=== PATIENT | female | born 2000 | race Caucasian/White ===

== ENCOUNTER 2021-04-26 21:50 | Emergency (ER) | payer OTHER, SELFPAY ==
[2021-04-26 22:05] VITALS: BP 110/63; PULSE 86; RESP 20; TEMP 36.6; O2SAT 98
[2021-04-26 22:25] LABS: Basophils Absolute Auto 0.07 K/mm3 (0.00-0.10); Basophils Percent Auto 0.6 % (0.0-1.0); Eosinophils Absolute Auto 0.04 K/mm3 (0.02-0.50); Eosinophils Percent Auto 0.3 % (1.0-6.0); Hematocrit 35.4 % (35.0-49.0); Hemoglobin 11.8 g/dL (12.0-15.0); Immature Granulocyte Absolute 0.05 K/mm3 (0.00-0.00); Immature Granulocyte Percent A 0.4 % (0.0-0.0); Lymphocytes Absolute Auto 2.87 K/mm3 (1.10-4.50); Lymphocytes Percent Auto 24.2 % (18.0-42.0); Mean Corpuscular HGB Conc 33.3 g/dL (32.0-36.0); Mean Corpuscular Hemoglobin 28.9 pg (27.0-31.0); Mean Corpuscular Volume 86.6 fL (78.0-102.0); Monocytes Absolute Auto 0.84 K/mm3 (0.10-0.90); Monocytes Percent Auto 7.1 % (2.0-11.0); Neutrophils Percent Auto 67.4 % (50.0-70.0); Platelet Count Result 240 K/mm3 (150-420); Red Blood Count 4.09 M/mm3 (4.20-5.40); Red Cell Distribution Width 12.6 % (11.6-14.4); White Blood Count 11.8 K/mm3 (4.8-10.8)
[2021-04-26 22:29] LABS: Add Urine Microscopic? YES; Appearance Urine Clear (Clear); Bilirubin Urine Negative (Negative); Blood Urine Negative (Negative); Color Urine Light Yellow (Yellow); Glucose Urine UA Negative (Negative); Ketones Urine 1+ (Negative); Leukocyte Esterase Ur 1+ (Negative); Nitrate Urine Negative (Negative); Protein Urine Trace (Negative); pH Urine 7.5 (5.0-8.0)
--- NOTE | 2021-04-26 22:32 | ED.NAVMDI ---
HPI - Nausea/Vomiting/Diarrhea General Chief complaint: Nausea/Vomiting/Diarrhea Stated complaint: vomitting Source: patient Mode of arrival: ambulatory Limitations: no limitations History of Present Illness HPI Narrative: pt presents with complaints of nausea and vomiting. She just found out that she is . She said her last period was about 2 months ago in february. She has no fevers, no chills, and otherwise feels ok. SHe states everytime she tried to drink something or eat, she threw up today. MD elicited complaint: nausea and vomiting Onset (ago): day(s) (today) Description of vomiting: food contents Associated nausea: Yes Associated abdominal pain: No Location of pain: none Exacerbating factors: eating and vomiting Associated symptoms: myalgias (ab muscles feel a little sore from vomiting), loss of appetite and nausea/vomiting Related Data Allergies Allergy/AdvReac Type Severity Reaction Status Date / Time No Known Allergies Allergy Verified 04/26/21 22:18 Review of Systems Review of Systems: All systems reviewed & are unremarkable except as noted in HPI and below PMFSH Social History Social History (Updated 04/26/21 @ 22:35 by Minoo Ma MD) Smoking status: Never smoker Alcohol intake: never Substance use: never Living arrangements: with family Exam Const: General: no acute distress and alert Nutritional Appearance: well nourished Orientation/consciousness: patient oriented x3 HENMT: Head: normal to inspection Mouth: Yes moist mucous membranes Eyes: Pupils: Equal, round and reactive pupils present EOM: EOMs intact bilaterally Neck: Neck: normal visual inspection Chest: Chest palpation & inspection: normal inspection of the chest Resp: Effort & Inspection: normal respiratory effort Auscultation: clear to auscultation bilaterally Cardio: Rate: regular rate Rhythm: regular rhythm GI: GI Palp: Yes Soft to palpation, No Tenderness to palpation present (GI), No Guarding due to palpation present (GI), No Rigid due to palpation and No Hernia present Auscultation: normal bowel sounds : General: Yes no CVA tenderness Back/Spine/Pelvis: Back: no CVA tenderness Skin: General skin exam: normal color Rashes: no rashes Neuro: General: patient oriented x3 and moves all extremities Speech: normal speech Gait exam (Neuro): Normal gait present Extrem: General: normal to inspection Psych: Mental Status: mental status grossly normal Affect: normal affect Course Vital Signs Vital signs: Vital Signs Temperature 36.6 C 04/26/21 22:05 Pulse Rate 86 04/26/21 22:05 Respiratory Rate 20 04/26/21 22:05 Blood Pressure 110/63 04/26/21 22:05 Pulse Oximetry 98 04/26/21 22:05 Temperature 36.6 C 04/26/21 22:05 Pulse Rate 86 04/26/21 22:05 Respiratory Rate 20 04/26/21 22:05 Blood Pressure 110/63 04/26/21 22:05 Pulse Oximetry 98 04/26/21 22:05 MDM - Nausea/Vomiting/Diarrhea Lab Data Result diagrams: 04/26/21 22:21 04/26/21 22:21 Labs: Lab Results 04/26/21 04/26/21 04/26/21 Range/Units 22:21 22:21 22:21 WBC Pending RBC Pending Hgb Pending Hct Pending MCV Pending MCH Pending MCHC Pending RDW Pending Plt Count Pending MPV Pending Immature Gran % (Auto) Pending Neut % (Auto) Pending Lymph % (Auto) Pending [place] % (Auto) Pending Eos % (Auto) Pending Baso % (Auto) Pending Lymph # (Auto) Pending [place] # (Auto) Pending Eos # (Auto) Pending Baso # (Auto) Pending Abs Immat Gran (auto) Pending Absolute Neuts (auto) Pending Absolute Nucleated RBC Pending Nucleated RBC % Pending Sodium Pending Potassium Pending Chloride Pending Carbon Dioxide Pending Anion Gap Pending BUN Pending Creatinine Pending Estim Creat Clear Calc Pending Estimated GFR Pen
[2021-04-26] MEDS: METOCLOPRAMIDE HCL 10 MG TABLET PO (22:34)
[2021-04-26 22:35] LABS: Anion Gap 12 mmol/L (8-16); Blood Urea Nitrogen 10 mg/dL (7-18); Calcium 8.4 mg/dL (8.5-10.1); Carbon Dioxide 24 mmol/L (21-32); Chloride 102 mmol/L (98-108); Estimated CRCL calculation 102 ml/min; Estimated Glomerular Filt Rate > 60; Glucose 86 mg/dL (70-99); Osmolality Calculated 284 mOsm/kg (285-295); Potassium 3.5 mmol/L (3.5-5.1); Sodium 138 mmol/L (136-145)
[2021-04-26 22:52] LABS: Bacteria Urine 1+ /hpf; RBC Urine None seen /hpf (0-2); Squamous Epithelial Cell Urine Many /hpf (Few); WBC Urine 0-3 /hpf (0-3)
[2021-04-26 22:53] LABS: Mucus Urine Heavy /lpf; Pregnancy On Board Control Positive; Urine Pregnancy Test Positive
[2021-04-26 22:58] VITALS: BP 110/63; PULSE 86; RESP 20; TEMP 36.6; O2SAT 97
== END 2021-04-26 23:00 | disposition home or self-care (01) ==
PROVIDERS: Emergency Provider Emergency Medicine
DX: O21.0 Mild hyperemesis gravidarum (principal)
CPT/HCPCS: 36415; 80048; 81001; 81025; 85025; 99283; A9270

== ENCOUNTER 2024-09-25 11:50 | Outpatient (CLI) | payer OTHER, SELFPAY ==
[2024-09-25 12:50] LABS: Strep Group A RT-PCR NOT DETECTED (Negative)
[2024-09-25 12:53] LABS: SARS-CoV-2 RNA PCR Negative (Negative)
[2024-09-25 12:56] LABS: Influenza A QL RT-PCR Negative (Negative); Influenza B QL RT-PCR Negative (Negative); RSV RNA, RT-PCR Negative (Negative)
--- OUTSIDE RECORDS SUMMARY | 2024-09-25 13:43 | XMS_ITS | Encounter Summary ---
Author Organization [facility] Address [address] [place] [id number] Care Team Providers Care Community Health Educator Name Role Phone Dulce Maria Green Primary Care Provider + Rolly Corbin MD Primary Care Provider [phone] Remy Freeman MD Primary Care Provider [phone] Encounter Details Date Type Department Care Team (Late st Contact Info) Description 12/30/2018 Abstract [facility] CONVERSION [address] [place] [address] , Generic Conversion, Social History Tobacco Use Types Packs/Day Years Used Date Smoking Tobacco: Never Assessed Comments Unknown Sex and Gender Information Value Date Recorded Sex Assigned at Not on file 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 Gender Identity Not on file Sexual Orientation Not on file documented as of this encounter Plan of Treatment Not on file documented as of this encounter Visit Diagnoses Not on filedocumented in this encounter Additional Health Concerns Infection Onset Date Last Indicated Resolved Time COVID-19 Rule Out 10/07/2021 10/07/2021 10/07/2021 11:53 PM CDT COVID-19 Rule Out 11/24/2021 11/24/2021 11/25/2021 7:10 PM CDT documented as of this encounter Care Teams Community Health Educator Relationship Specialty Start Date End Date Dulce Maria Green FNP [address] [place] [phone] PCP - General NURSE PRACTITIONER 03/09/19 03/18/19 Rolly Corbin MD [address] [place] [address] PCP - General FAMILY PRACTICE 03/19/19 12/22/20 Remy Freeman MD [address] [place] [phone] PCP - General FAMILY PRACTICE 12/23/20 documented as of this encounter
--- OUTSIDE RECORDS SUMMARY | 2024-09-25 13:43 | XMS_ITS | Encounter Summary ---
Author Organization [facility] Address [address] [place] [address] Care Team Providers Care Olive Grower Name Role Phone Remy Freeman MD Primary Care Provider [phone] Encounter Details Date Type Department Care Team (Late st Contact Info) Description 11/10/2021 Hospital Orders Only [facility] [address] [place] [address] Elliot Enamorado MD [address] [place] [address] Social History Tobacco Use Types Packs/Day Years Used Date Smoking Tobacco: Never Smokeless Tobacco: Never Alcohol Use Standard Drinks/Week Comments No 0 (1 standard drink = 0.6 oz pur e alcohol) AUDIT-C Answer Date Recorded Frequency of Alcohol Consumption Never 03/09/2019 Average Number of Drinks Not on file 019 Frequency of Binge Drinking Not on file 02/22 Comments Yes Sex and Gender Information Value Date Recorded Sex Assigned at Not on file 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 No / Unsure 11/12/2021 9:22 AM CDT documented as of this encounter Plan of Treatment Not on file documented as of this encounter Visit Diagnoses Not on filedocumented in this encounter Additional Health Concerns Infection Onset Date Last Indicated Resolved Time COVID-19 Rule Out 11/24/2021 11/24/2021 11/25/2021 7:10 PM CDT documented as of this encounter Care Teams Olive Grower Relationship Specialty Start Date End Date Remy Freeman MD [address] [place] [phone] PCP - General FAMILY PRACTICE 12/23/20 documented as of this encounter
--- OUTSIDE RECORDS SUMMARY | 2024-09-25 13:43 | XMS_ITS | Clinical Summary ---
Author Organization [facility] Address Formerly [facility] [place] [address] Care Team Providers Care Hoop Riveting Machine Operator Name Role Phone Remy Freeman MD Primary Care Provider [phone] Allergies No known active allergies Medications vitamin, low iron, ( VITAMIN WITH IRON) 27-0.8 MG tablet Take 1 tablet by mouth daily. Active PARoxetine (PAXIL) 40 MG tablet Take 1 tablet (40 mg total) by mouth every morning. Active Active Problems Problem Noted Date Diagnosed Date Acute blood loss anemia 12/04/2021 Non-reassuring heart r ate or rhythm affecting management of mother ([facility]) 11/28/2021 Chorioamnionitis in third trimester ([facility]) Encounter for elective induction of labor ([facility]) 11/26/2021 Anemia of in third trimester ([facility]) 11/26/2021 39 weeks gestation of ([facility]) 2021 Low amniotic fluid ([facility]) 11/26/2021 Comments Yes Resolved Problems Problem Noted Date Diagnosed Date Resolved Date Anemia, unspecified 11/10/2021 11/27/19 22 Sprain of anterior talofibul ar ligament, right, subsequent encounter 03/29/2019 11/26/2021 Social History Tobacco Use Types Packs/Day Years Used Date Smoking Tobacco: Never Smokeless Tobacco: Never Alcohol Use Standard Drinks/Week Comments No 0 (1 standard drink = 0.6 oz pur e alcohol) Humiliation, Afraid, Rape, and Kick questionnair e Answer Date Recorded Within the last year, have y ou been afraid of your partner or ex-partner? No 11/26/2021 Within the last year, have y ou been humiliated or emotionally abused in other ways by your partner or ex-partner? No Within the last year, have y ou been kicked, hit, slapped, or otherwise physically hurt by your partner or ex-partner? No 11/26/2021 Within the last year, have y ou been raped or forced to have any kind of sexual activity by your partner or ex-partner? No 11/26/2021 Social Connection and Isolation Panel [NHANES] A nswer Date Recorded In a typical week, how many times do you talk on the phone with family, friends, or neighbors? Once a week 11/27/19 How often do you get togethe r with friends or relatives? Once a week 11/26/2021 How often do you attend chur ch or spiritism services? 1 to 4 times per year 11/26/2021 Do you belong to any clubs o r organizations such as buddhist groups, unions, fraternal or athletic groups, or school groups? No 11/26/2021 How often do you attend meet ings of the clubs or organizations you belong to? 1 to 4 times per year 11/26/2021 Are you , , di vorced, , never , or living with a partner? Living with partner 11/26/2021 AUDIT-C Answer Date Recorded Q1: How often do you have a drink containing alc ohol? Never 11/26/2021 Q2: How many drinks containi ng alcohol do you have on a typical day when you are drinking? Patient declined 11/26/2021 Q3: How often do you have si x or more drinks on one occasion? Patient declined 11/26/2021 Overall Financial Resource Strain (CARDIA) Answe r Date Recorded How hard is it for you to pa y for the very basics like food, housing, medical care, and heating? Not very hard 11/26/2021 [facility] [place] [facility] - Occupational Stress Questionnaire Answer Date Recorded Do you feel stress - tense, restless, nervous, or anxious, or unable to sleep at night because your mind is troubled all the time - these days? Not at all 11/26/2021 Exercise Vital Sign Answer Date Recorde d On average, how many days pe r week do you engage in moderate to strenuous exercise (like a brisk walk)? 0 days 11/26/2021 On average, how many minutes do you engage in exercise at this level? 0 min 11/26/2021 Hunger Vital Sign Answer Date Recorded Within the past 12 months, y ou worried that your food would run out before you got the money to buy more. Never true 11/27/19 22 Within the past 12 months, t he food you bought just didn't last and you didn't have money to get more. Never true 11/26/2021 PRAPARE - Transportation Answer Date Re corded In the past 12 months, has l ack of transportation kept you from medical appointments or from getting medications? No 11/2021 In the past 12 months, has l ack of transportation kept you from meetings, work, or from getting things needed for daily living? No 11/26/2021 Housing Stability Vital Sign Answer Ilan e Recorded In the last 12 months, was t here a time when you were not able to pay the mortgage or rent on time? No 11/26/2021 In the last 12 months, how many places have you lived? 1 11/26/2021 In the last 12 months, was t here a time when you did not have a steady place to sleep or slept in a correction (including now)? 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 Gender Identity Not on file Sexual Orientation Not on file Last Filed Vital Signs Vital Sign Reading Time Taken Comments Blood Pressure 115/80 04/21/2024 11:00 PM CDT Pulse 102 04/21/2024 10:12 PM CDT Temperature 36.7 C (98 F) 04/21/2024 10:12 PM CDT Respiratory Rate 16 04/21/2024 10:1 2 PM CDT Oxygen Saturation 99% 04/21/2024 11: 00 PM CDT Inhaled Oxygen Concentration - - Weight 50.3 kg (110 lb 12.8 oz) 024 10:12 PM CDT Height 154.9 cm (5' 1 ) 04/21/2024 10:1 2 PM CDT Body Mass Index 20.94 04/21/2024 10:12 PM CDT Plan of Treatment Health Maintenance Due Date Last Done Comments Cervical Cancer Screening Pap Smear (Age 21 to 29) Every 3 Years 2000 Cervical Cancer Screening 2000 Annual Physical 2003 DTaP, Tdap and Td Vaccines (5 - Tdap) 2011 09/16/2004, 07/06/2004, 01/17/2002, Additional history exists Hepatitis C 2018 Hepatitis B Vaccines (1 of 3 - 19+ 3-dose series) 2019 COVID-19 Vaccine (1 - 2023- season) 2024 Influenza Adult (#1) 2024 Chlamydia Screening Females ages 16-24 04/21/2025 04/21/2024 RSV Immunization or 60+ Years (1 - 1-dose 75+ series) 2075 HPV Vaccines Completed 03/27/2019, 03/20/2013 Meningococcal Vaccine Completed 03/27/2019, 013 Meningococcal B Vaccine Aged Out No l onger eligible based on patient's age to complete this topic Pneumococcal Vaccine: Pediatrics (0 to 5 Years) and At-Risk Patients (6 to 64 Years) Aged Out No longer eligible based on patient's age to complete this topic RSV Immunizations Under 20 Months Aged Out No longer eligible based on patient's age to complete this topic Procedures Procedure Name Priority Date/Time Associated Diagnosis Comments CHLAMYDIA GC RNA Nurse Collected Priority 04/21/2024 5:54 PM CDT from Last 3 Months or Most Recently Relevant to Health Maintenance Results * CHLAMYDIA GC RNA (04/21/2024 5:54 PM CDT) SPECIMEN VAGINAL SPECIMEN 04/21/2024 5:54 PM CDT [facility] CHLAMYDIA RNA TMA NEGATIVE NEGATIVE 024 2:31 AM CDT [facility] Comment:PERFORMED BY NUCLEIC ACID AMPLIFICATION N.GONORRHOEAE RNA TMA NEGATIVE NEGATIVE 04/24/2024 2:31 AM CDT [facility] Comment:PERFORMED BY NUCLEIC ACID AMPLIFICATION VAGINAL STRUCTURE / Unknown 04/21/2024 5:54 PM CDT Delfino Mccartney PA-C MICROBIOLOGY - GENERAL ORDER ANNE-MARIE Final Result [facility] [address] [place] [address], [facility] [address] [place] [address], [id number] from Last 3 Months or Most Recently Relevant to Health Maintenance Insurance [facility] Advance Directives * Full Code (Latest Code Status on File) Date Activated Date Inactivated Comments 11/28/2021 6:41 AM 11/30/2021 2:04 PM * Full Code Date Activated Date Inactivated Comments 11/26/2021 4:23 PM 11/28/2021 6:41 AM Care Teams Hoop Riveting Machine Operator Relationship Specialty Start Date End Date Remy Freeman MD [address] [place] [phone] PCP - General FAMILY PRACTICE 12/23/20
== END 2024-09-25 11:51 | disposition home or self-care (01) ==
PROVIDERS: PCP Registered Nurse; Visit Provider Registered Nurse
DX: J02.9 Acute pharyngitis, unspecified (principal)
CPT/HCPCS: 87637; 87651